=== PATIENT | male | born 1980 | race American Indian/Alaskan Native ===

== ENCOUNTER 2021-04-27 09:04 | Emergency (ER) | payer OTHER ==
--- NOTE | 2021-04-27 11:04 | Emergency Department Report ---
ED ENT HPI - General Chief complaint: Earache Stated complaint: LEFT EAR ACHE Time Seen by Provider: 04/27/21 10:07 Source: patient Mode of arrival: Ambulatory Limitations: No Limitations - History of Present Illness Initial comments: 41-year-old -[place] male presents to the emergency room complaining of left ear feels clogged. Patient states yesterday he had his cleaned his ear out with Debrox and she was able to remove some of the wax instrumental he. Patient states today now it feels like it is clogged back up. Patient denies any pain or drainage from the ear. Denies any fever or chills. He has no past medical history currently takes no meds and has no known drug allergies. MD complaint: other (Left ear feels clogged) Onset/Timin -: days(s) Location: L ear Severity: mild Severity scale (0 -10): 0 Quality: other (Feels clogged) Consistency: constant Improves with: none Worsens with: none Context- Ear: other (Ear feels clogged) Associated Symptoms: denies: sore throat, tinnitus, hearing loss, discharge from ear - Related Data Allergies Allergy/AdvReac Type Severity Reaction Status Date / Time No Known Allergies Allergy Verified 02/02/18 05:39 ED Dental HPI - General Chief complaint: Earache Stated complaint: LEFT EAR ACHE Time Seen by Provider: 04/27/21 10:07 Source: patient Mode of arrival: Ambulatory Limitations: No Limitations - Related Data Allergies Allergy/AdvReac Type Severity Reaction Status Date / Time No Known Allergies Allergy Verified 02/02/18 05:39 ED Review of Systems ROS: Stated complaint: LEFT EAR ACHE Other details as noted in HPI Comment: All other systems reviewed and negative ED Past Medical Hx - Past Medical History Previous Medical History?: No - Surgical History Past Surgical History?: Yes Additional Surgical History: left shoulder - Social History Smoking Status: Never Smoker Substance Use Type: None ED Physical Exam - General Limitations: No Limitations General appearance: alert, in no apparent distress - Head Head exam: Present: atraumatic, normocephalic - Eye Eye exam: Present: normal appearance, EOMI - ENT ENT exam: Present: mucous membranes moist, normal external ear exam - Expanded ENT Exam Expanded TM/Canal exam: Cerumen Impaction: Left TM (Moist wax) Mouth exam: Present: normal external inspection - Neck Neck exam: Present: normal inspection, full ROM - Respiratory Respiratory exam: Absent: respiratory distress, accessory muscle use - Cardiovascular Cardiovascular Exam: Present: regular rate - Extremities Exam Extremities exam: Present: full ROM - Back Exam Back exam: Present: full ROM - Neurological Exam Neurological exam: Present: alert, oriented X3, normal gait - Psychiatric Psychiatric exam: Present: normal affect, normal mood - Skin Skin exam: Present: warm, dry, intact, normal color. Absent: rash ED Course Vital Signs 04/27/21 10:05 Temperature 98.3 F Pulse Rate 65 Respiratory 16 Rate Blood Pressure 132/81 [Left] O2 Sat by Pulse 99 Oximetry ED Medical Decision Making - Medical Decision Making 41-year-old -[place] male presents to the emergency room complaining of left ear feels clogged. Patient states yesterday he had his cleaned his ea r out with Debrox and she was able to remove some of the wax instrumental he. Patient states today now it feels like it is clogged back up. Patient denies any pain or drainage from the ear. Denies any fever or chills. He has no past medical history currently takes no meds and has no known drug allergies. Recommend patient to follow-up at her ear nose and throat provider. Patient to continue trying to use Debrox. Critical care attestation.: If time is entered above; I have spent that time in minutes in the direct care of this critically ill patient, excluding procedure time. ED Disposition Clinical Impression: Left ear impacted cerumen Disposition: HOME / SELF CARE / HOMELESS Is pt being admited?: No Does the pt Need Aspirin: No Condition: Stable Instructions: Earwax Buildup, Adult Additional Instructions: You can continue using the Debrox to irrigate her ear. I recommend following up with the research methods instructor. Referrals: GUICHO FERNANDEZ MD [Referring] - 3-5 Days Forms: Work/School Release Form(ED) Time of Disposition: 11:05
[2021-04-27 11:36] VITALS: BP 130/80
== END 2021-04-27 11:35 | disposition home or self-care (01) ==
LOC: ED 09:04
DX: H61.22 Impacted cerumen, left ear (principal)
CPT/HCPCS: 99282